=== PATIENT | female | born 1980 | race Caucasian/White ===

== ENCOUNTER 2016-06-04 21:43 | Emergency (ER) | payer MEDICAID ==
--- NOTE | ~2016-06-04 | ER ---
PATIENT'S NAME: RM WIGGINS [facility] AGE: 36 Y [address] ROOM: [place], [place] [address] LOCATION: ED ADMIT DATE: 06/04/2016 ER/Outpatient Report DISCHARGE DATE: 06/04/2016 FAMILY PHYSICIAN: Alfa Odom MD ATTENDING PHYSICIAN: Kain Leblanc Time of Arrival: 2143 hours. Time of Evaluation: 2155 hours. CHIEF COMPLAINT: Migraine headache. HISTORY OF PRESENT ILLNESS: This is a 36-year-old female who presents here with a migraine headache, started approximately 4 hours prior to arrival. The patient states she has a history of migraines and it is similar to her previous headaches located across her forehead and to the back of her head. It is causing her to have photophobia, nausea, and vomiting. She states that she has had a recent viral upper respiratory infection. She did take her Imitrex with no relief of her headache. She denies any other problems at this time. ALLERGIES: TRAMADOL. MEDICATIONS: Please see medication list nurse's notes. PAST MEDICAL HISTORY: Migraines, arthritis, back pain, allergies, anxiety, fibromyalgia, neuropathy, and hypothyroidism. PAST SURGERIES: Back surgery, neck surgery, , cholecystectomy, and tubal ligation. SOCIAL HISTORY: She recently quit smoking. She has a nicotine patch. REVIEW OF SYSTEMS: A 10-point review of systems was completed and was negative with the exception of those discussed in the HPI. PHYSICAL EXAMINATION: VITAL SIGNS: Height 5 feet and 1 inch stated, weight 57.0 kg taken, blood pressure is 127/75, pulse 61, respirations 20, temperature 97.1 degrees tympanically, and saturations 98% on room air. [place] Coma Score is 15. PATIENT'S NAME: RM WIGGINS [facility] AGE: 36 Y [address] ROOM: [place], [place] [address] LOCATION: ED ADMIT DATE: 06/04/2016 ER/Outpatient Report DISCHARGE DATE: 06/04/2016 FAMILY PHYSICIAN: Alfa Odom MD ATTENDING PHYSICIAN: Kain Leblanc GENERAL: Alert, calm, well-developed female, in mild distress. HEENT: Head: Normocephalic. Eyes: Pupils are equal and reactive to light. Ears: TMs display good light reflexes bilaterally. Auditory canals clear. Nose: Turbinates pink with no drainage. Throat: No exudates or erythema. She does display moist mucous membranes. NECK: Supple. No lymphadenopathy. No nuchal rigidity. LUNGS: Clear to auscultation bilaterally. No wheezes or crackles. Normal respiratory effort. HEART: Regular rate and rhythm. No lifts, thrills, or murmurs. EXTREMITIES: She is neurovascularly intact. SKIN: Warm, dry, and intact. LABS AND X-RAYS: None were done. IMPRESSION: Migraine headache. ASSESSMENT AND PLAN: The patient did not want an IV started. She states the IM injections worked well for her. I did review the patient's chart. We did give her 10 mg of Compazine IM, Benadryl 50 mg IM, and Toradol 60 mg IM. She did tolerate this well. We will dismiss the patient to home. She needs to continue to push fluids, monitor her symptoms closely, and follow up with her primary care physician for followup care if needed. The patient understands and agrees with care. EDISON MEDEIROS PA-C FOR DO LAMINE GONZÁLES/yung /[id number] d: t: 06/09/16 1203, OUTPATIENT REPORT
== END 2016-06-04 22:12 | disposition disaster alternative care site (69) ==
LOC: GMED 21:43
DX: G43.909 Migraine, unspecified, not intractable, without status migrainosus (principal); E03.9 Hypothyroidism, unspecified; F41.9 Anxiety disorder, unspecified; G62.9 Polyneuropathy, unspecified; M19.90 Unspecified osteoarthritis, unspecified site; Z98.890 Other specified postprocedural states; Z88.5 Allergy status to narcotic agent; Z79.899 Other long term (current) drug therapy; Z90.49 Acquired absence of other specified parts of digestive tract; Z87.891 Personal history of nicotine dependence
CPT/HCPCS: J0780; J1200; J1885